=== PATIENT | male | born 1950 | race Caucasian/White ===

== ENCOUNTER 2023-06-02 09:46 | Outpatient (OUT) | payer MEDICARE, OTHER, SELFPAY ==
[2023-06-02 10:09] LABS: Basophils Absolute Auto 0.1 10^3/uL (0.0-0.1); Basophils Percent Auto 1.6 % (0.2-2.0); Eosinophils Absolute Auto 0.2 10^3/uL (0.0-0.7); Eosinophils Percent Auto 3.3 % (0.9-7.0); Hematocrit 39.4 % (42.0-54.0); Immature Granulocytes Abs Auto 0.03 10^3/uL (0.00-0.03); Immature Granulocytes Pct Auto 0.5 % (0.0-0.5); Lymphocytes Absolute Auto 1.7 10^3/uL (1.2-3.8); Lymphocytes Percent Auto 26.7 % (20.5-60.0); Mean Corpuscular Hemoglobin 30.4 pg (25.9-34.0); Mean Corpuscular Volume 92.3 fL (80.0-94.0); Monocytes Absolute Auto 0.6 10^3/uL (0.3-0.8); Monocytes Percent Auto 9.5 % (1.7-12.0); Neutrophils Absolute Auto 3.7 10^3/uL (1.4-6.5); Neutrophils Percent Auto 58.4 % (43.0-75.0); Platelet Count 192 10^3/uL (150-450); Red Blood Count 4.27 10^6/uL (4.70-6.10); Red Cell Distribution Width 13.2 % (11.0-15.0); White Blood Count 6.4 10^3/uL (4.0-11.0)
[2023-06-02 11:06] LABS: Alanine Aminotransferase 64 U/L (16-63); Albumin Globulin Ratio 1.1; Albumin Level 3.8 g/dL (3.4-5.0); Alkaline Phosphatase 64 U/L (46-116); Aspartate Amino Transferase 33 U/L (15-37); BUN Creatinine Ratio 20.9; Bilirubin Total 0.5 mg/dL (0.2-1.0); Calcium 8.8 mg/dL (8.5-10.1); Carbon Dioxide 23.3 mmol/L (21.0-32.0); Chloride 104 mmol/L (98-107); Chol HDL Ratio 3.2; Cholesterol 190 mg/dL (<=200); Estimated GFR (African America >60 (>=60); Estimated GFR (Non-African Ame >60 (>=60); Free T3 2.65 pg/mL (2.18-3.98); Globulin 3.5 g/dL; Glucose 134 mg/dL (74-106); HDL Cholesterol 60 mg/dL (40-60); LDL Cholesterol Calculated 103.6 mg/dL; Potassium 4.3 mmol/L (3.5-5.1); Sodium 140 mmol/L (136-145); Thyroid Stimulating Hormone 3.407 uIU/mL (0.358-3.740); Total Protein 7.3 g/dL (6.4-8.2); Triglycerides 132 mg/dL (<=150); VLDL CHOLESTEROL 26.4 mg/dL
[2023-06-02 11:42] LABS: Prostate Specific Antigen Scrn 0.82 ng/mL (<=4.00)
[2023-06-02 11:43] LABS: Estimated Average Glucose 128 mg/dL; Glycohemoglobin A1C 6.1 % (4.5-6.2)
[2023-06-03 11:09] LABS: Insulin 18.3 uIU/mL (2.6-24.9)
== END 2023-06-02 09:47 | disposition home or self-care (01) ==
PROVIDERS: PCP Family Medicine; Visit Provider Family Medicine
DX: G47.30 Sleep apnea, unspecified (principal); I10 Essential (primary) hypertension; E78.5 Hyperlipidemia, unspecified; R73.09 Other abnormal glucose; Z12.5 Encounter for screening for malignant neoplasm of prostate
CPT/HCPCS: 36415; 80053; 80061; 83036; 83525; 84436; 84443; 84481; 85025; G0103

== ENCOUNTER 2023-12-03 10:01 | Outpatient (OUT) | payer MEDICARE, OTHER, SELFPAY ==
[2023-12-03 10:36] LABS: Basophils Absolute Auto 0.1 10^3/uL (0.0-0.1); Basophils Percent Auto 0.9 % (0.2-2.0); Eosinophils Absolute Auto 0.2 10^3/uL (0.0-0.7); Eosinophils Percent Auto 2.7 % (0.9-7.0); Hematocrit 39.2 % (42.0-54.0); Hemoglobin 13.3 g/dL (14.0-18.0); Immature Granulocytes Abs Auto 0.06 10^3/uL (0.00-0.03); Immature Granulocytes Pct Auto 0.9 % (0.0-0.5); Lymphocytes Absolute Auto 1.4 10^3/uL (1.2-3.8); Lymphocytes Percent Auto 20.6 % (20.5-60.0); Mean Corpuscular HGB Conc 33.9 g/dL (29.9-35.2); Mean Corpuscular Hemoglobin 31.1 pg (25.9-34.0); Mean Corpuscular Volume 91.6 fL (80.0-94.0); Mean Platelet Volume 9.1 fL (9.5-13.5); Monocytes Absolute Auto 0.6 10^3/uL (0.3-0.8); Monocytes Percent Auto 8.1 % (1.7-12.0); Neutrophils Absolute Auto 4.7 10^3/uL (1.4-6.5); Neutrophils Percent Auto 66.8 % (43.0-75.0); Platelet Count 200 10^3/uL (150-450); Red Blood Count 4.28 10^6/uL (4.70-6.10); Red Cell Distribution Width 12.4 % (11.0-15.0)
[2023-12-03 10:59] LABS: Alanine Aminotransferase 52 U/L (16-63); Albumin Globulin Ratio 1.2; Albumin Level 3.7 g/dL (3.4-5.0); Alkaline Phosphatase 55 U/L (46-116); Anion Gap 14.7; Aspartate Amino Transferase 29 U/L (15-37); BUN Creatinine Ratio 19.2; Bilirubin Total 0.4 mg/dL (0.2-1.0); Calcium 8.9 mg/dL (8.5-10.1); Carbon Dioxide 24.6 mmol/L (21.0-32.0); Chloride 102 mmol/L (98-107); Creatine Kinase 153 U/L (39-308); Estimated GFR (African America >60 (>=60 mL/min/1.73m^2); Estimated GFR (Non-African Ame >60 (>=60 mL/min/1.73m^2); Globulin 3.2 g/dL; Glucose 146 mg/dL (74-106); Magnesium 1.7 mg/dL (1.8-2.4); Myoglobin 78 ng/mL (16-96); Potassium 4.3 mmol/L (3.5-5.1); Sodium 137 mmol/L (136-145); Total Protein 6.9 g/dL (6.4-8.2)
[2023-12-04 09:28] LABS: Estimated Average Glucose 123 mg/dL; Glycohemoglobin A1C 5.9 % (4.5-6.2)
== END 2023-12-03 10:02 | disposition home or self-care (01) ==
LOC: LAB 10:04
PROVIDERS: PCP Family Medicine; Visit Provider Family Medicine
DX: R73.09 Other abnormal glucose (principal); I10 Essential (primary) hypertension
CPT/HCPCS: 36415; 80053; 82550; 83036; 83735; 83874; 85025

== ENCOUNTER 2024-01-21 14:20 | Outpatient (OUT) | payer MEDICARE, OTHER, SELFPAY ==
--- NOTE | 2024-01-21 14:21 | VEIN_ITS ---
The [address] [address] Patient Name: MIRZA HILARIO MRN: [id number] date: 1950 Sex: M Assigned Patient Location: Current Patient Location: Accession/Order Number: [id number] Exam Date: 01/21/2024 14:22 Report Date: 01/22/2024 11:20 At the request of: BRIDGER MASTERSON Procedure: VC SEGMENTAL PRESSURES EXAM: VC SEGMENTAL PRESSURES HISTORY: R09.89 COMPARISON: None. TECHNIQUE: Resting ABIs and segmental limb pressures were obtained. FINDINGS: Right resting BETH normal at 1.16. Left resting BETH normal at 1.25. No pressure gradients were noted. VEIN/VC SEGMENTAL PRESSURES IMPRESSION: Normal resting ABIs and segmental pressures. No pressure gradients. Electronically authenticated by: Hugo WILKINSON Date: 01/22/2024 11:20
--- OUTSIDE RECORDS SUMMARY | 2024-01-21 14:37 | XMS_ITS | CCD ---
Author Organization [facility] Care Team Providers Care [employer] Production Technician Name Role Phone Bridger Perez Primary Care Physician Ana PROVIDERBridger Referring Unavailabl e NILLMirza Attending Unavailable NILL, Mirza Rosas Attending Unavailable Pby Bridger CARDENAS Referring Unavailabl e NILL, Mirza Rosas Attending Unavailable NILL ., DR BLUE Admitting Unavailable NILL ., DR BLUE Attending Unavailable HOY ., DR SPARKS Primary Care Unavailable NILL ., DR BLUE Consulting Unavailable NILL ., DR BLUE Admitting Unavailable NILL ., DR BLUE Attending Unavailable HOY ., DR SPARKS Primary Care Unavailable NILL ., DR BLUE Consulting Unavailable KEYONNA CASTILLO Consulting Unavailable ASHLEY CHEUNG Consulting Unavailable HOY ., DR SPARKS Admitting Unavailable HOY ., DR SPARKS Attending Unavailable HOY ., DR SPARKS Primary Care Unavailable ANA ., DR SPARKS Consulting Unavailable MD Bridger Perez Primary [phone] Bridger Perez Primary Care Unavailable Carole Bond Attending Unavailable Carole Bond Admitting Unavailable Unavailable Primary Care Provider UnavailOLGA LIDIA Holliday Attending Unavailable Allergies Allergy Classification Reported Allergen(s) Allergy Type Date of Onset Reaction(s) Facility (1 source) No Known Medication Allergies; Translations: [No Known Medication Allergies] Propensity to adverse reactions (disorder) [facility] Repository Medications Current Medications Medication Drug Class(es) Dates Sig (Normalized) Sig (Original) benazepril hydrochloride 40 mg oral tablet (6 sources) Angiotensin Converting Enzyme Inhibitor Start: 11-08-2023 take 40 mg by mouth once daily Benazepril Active 40 MG PO Daily November 08, 2023 12:00am Start: 02-14-2022 take 1 tablet by faby th once daily benazepril 20 mg Tab 20 mg = 1 tab(s), Oral, Daily, Refills(s) 0 Start Date: 02/14/22 Status: Ordered ezetimibe 10 mg oral tablet (6 sources) Dietary Cholesterol Absorption Inhibitor Start: 02-14-2022 take 10 mg by mouth once daily Ezetimibe Active 10 MG PO Daily November 08, 2023 12:00am ibuprofen 800 mg oral tablet (5 sources) Nonsteroidal Anti-inflammatory Drug Start: 12-03-2022 ibuprofen 800 MG tablet TAKE 1 TABLET BY MOUTH EVERY 6 TO 8 HOURS NEEDED 12/03/2022 Active predniSONE 20 mg oral tablet (1 source) Start: 11-08-2023 take 40 mg by mouth once daily Prednisone Active 40 MG PO Daily 6 November 08, 2023 12:00am simvastatin 20 mg oral tablet (6 sources) HMG-CoA Reductase Inhibitor Start: 11-08-2023 take 20 mg by mouth once daily Simvastatin Active 20 MG PO Daily November 08, 2023 12:00am Start: 02-14-2022 take 1 tablet by faby th once daily at bedtime simvastatin 40 mg Tab 40 mg = 1 tab(s), Oral, Once a day (at bedtime), Refills(s) 0 Start Date: 02/14/22 Status: Ordered tiZANidine 2 mg oral capsule (1 source) Central alpha-2 Adrenergic Agonist Start: 11-08-2023 take 2 mg by mouth once daily at bedtime Tizanidine Active 2 MG PO Daily at bedtime 3 November 08, 2023 12:00am Problems Problem Classification Problem Date Documented Date Episodic/Chronic Diabetes mellitus without complication (1 source) Other abnormal glucose; Translations: [OTHER ABNORMAL GLUCOSE] Onset: 05-24-2022 Episodic Disorders of lipid metabolism (4 sources) Hyperlipidemia; Translations: [Hyperlipidemia, unspecified] Onset: 05-24-2022 02-14-2022 Chronic Essential hypertension (4 sources) Hypertensive disorder; Translations: [Essential (primary) hypertension] Onset: 05-24-2022 02-14-2022 Chronic Nutritional deficiencies (1 source) Vitamin D deficiency, unspecified; Translations: [VITAMIN D DEFICIENCY UNSPECIFIED] Onset: 05-24-2022 Chronic Other and unspecified benign neoplasm (2 sources) History of polyp of colon; Translations: [Personal history of colonic polyps] Onset: 02-26-2022 Episodic Other and unspecified benign neoplasm (1 source) Benign adenomatous neoplasm 02-14-2022 Episodic Other and unspecified benign neoplasm (4 sources) Personal history of colonic polyps; Translations: [PERSONAL HISTORY OF COLONIC POLYPS] Onset: 03-19-2022 Episodic Other and unspecified benign neoplasm (2 sources) Skin lesion; Translations: [Hemangioma of skin and subcutaneous tissue] 12-21-2023 Episodic Other ear and sense organ disorders (1 source) Sensorineural hearing loss 02-14-2022 Chronic Other non-traumatic joint disorders (2 sources) Effusion of right knee joint; Translations: [Effusion, right knee] 11-08-2023 Episodic Other non-traumatic joint disorders (4 sources) Pain in right knee; Translations: [Right knee pain] Onset: 11-08-2023 11-08-2023 Episodic Other non-traumatic joint disorders (1 source) Effusion, right knee; Translations: [Effusion of joint, lower leg] 11-08-2023 Episodic Other nutritional; endocrine; and metabolic disorders (1 source) Body mass index 30+ - obesity 02-26-2022 Chronic Other screening for suspected conditions (not mental disorders or infectious disease) (1 source) Encounter for screening for malignant neoplasm of prostate; Translations: [ENC SCREEN MALIG NEOPLASM PROSTATE] Onset: 05-24-2022 Episodic Other skin disorders (1 source) Mass of left parotid gland 02-14-2022 Episodic Other skin disorders (2 sources) Lentiginosis; Translations: [Other melanin hyperpigmentation] 12-21-2023 Episodic Other skin disorders (2 sources) Seborrheic keratosis; Translations: [Other seborrheic keratosis] 12-21-2023 Episodic Other skin disorders (2 sources) Skin tag; Translations: [Other hypertrophic disorders of the skin] 12-21-2023 Episodic Other upper respiratory disease (1 source) Seasonal allergic rhinitis 02-14-2022 Chronic Residual codes; unclassified (3 sources) Sleep apnea; Translations: [Sleep apnea, unspecified] 02-14-2022 Chronic Residual codes; unclassified (5 sources) Sleep apnea, unspecified; Translations: [SLEEP APNEA UNSPECIFIED] Onset: 03-21-2022 Chronic Residual codes; unclassified (1 source) Family history of malignant neoplasm of digestive organ; Translations: [Family history of malignant neoplasm of digestive organs] Onset: 02-26-2022 Episodic Residual codes; unclassified (1 source) Family history of cancer of colon 02-26-2022 Episodic Residual codes; unclassified (1 source) Family history of malignant neoplasm of digestive organs; Translations: [FAM HX MALIG NEOPLASM DIGESTIV ORGN] Onset: 03-21-2022 Episodic Screening and history of mental health and substance abuse codes (1 source) Personal history of nicotine dependence; Translations: [PERSONAL HISTORY OF NICOTINE DEPEND] Onset: 03-21-2022 Episodic Spondylosis; intervertebral disc disorders; other back problems (3 sources) Low back pain; Translations: [Low back pain] 11-08-2023 Episodic Unclassified (1 source) CONTACT W/AND (SUSP) EXPOS COVID-19; Translations: [CONTACT W/AND (SUSP) EXPOS COVID-19] Onset: 03-21-2022 Results Test Name Value Interpretation Reference Range Facility XR knee RT 4V*on 11-08-2023 XR knee RT 4V* [facility] [place] [address] XRay Report Signed Patient: Mirza Carvalho MR#: [id number] : 1950 Acct:[id number] Age/Sex: 73 / M ADM Date: 11/08/23 Loc: [facility] Room: Type: [facility] Attending Dr: Carole Bond [facility] KAI Copies to: Carole Bond APRN Ordering Provider: Carole Bond APRN Date of Service: 11/08/23 XR/XR knee RT 4V*: LEFT KNEE PAIN XR knee RT 4V* 11/08/2023 10:17 AM SIGNS AND SYMPTOMS: LEFT KNEE PAIN PROTOCOL: Frontal, lateral, and oblique radiographs of the right knee COMPARISON: None FINDINGS: There is mild narrowing of the medial weightbearing joint space with spurring of the medial tibial plateau and medial femoral condyle. There is mild narrowing of the patellofemoral joint space with spurring at the of the patella. There is a small joint effusion. No soft tissue swelling. No fracture. Vascular calcifications are present posteriorly. XR/XR knee RT 4V* IMPRESSION: No acute bony injury. Tricompartmental degenerative changes are noted, greatest medially. There is a small joint effusion. Impression dictated by: Jasper Villalba M.D.11/08/2023 10:28 AM Dictation Location: [place] [address] Transcribed By: JERALD 11/08/23 1028 Dictated By: Jasper Villalba II, MD 11/08/23 1026 Signed By: 11/08/23 1028 Normal [facility] XR lumbar spine min 4V*on XR lumbar spine min 4V* [facility] [place] [address] [place] [address] XRay Report Signed Patient: Mirza Carvalho MR#: [id number] : 1950 Acct:[id number] Age/Sex: 73 / M ADM Date: 11/08/23 Loc: [facility] Room: Type: [facility] Attending Dr: Carole Bond [facility] VP SITE Copies to: Carole Bond APRN Ordering Provider: Carole Bond APRN Date of Service: 11/08/23 XR/XR lumbar spine min 4V*: LOW BACK PAIN XR lumbar spine min 4V* 11/08/2023 10:17 AM SIGNS AND SYMPTOMS: Low back pain radiating to right lower extremity PROTOCOLS: Frontal, lateral, and oblique radiographs of the lumbar spine COMPARISON: None FINDINGS: The alignment, development and bony structures are normal. There is no fracture or destructive lesion. There is moderate to severe disc height loss at L4-5. There is moderate disc height loss at L1-L2, L3-L4, and L5-S1. There is accompanying anterior osteophyte formation. There is facet hypertrophy which is greatest at L4-5. Mild degenerative changes are noted in the sacroiliac joints. Atherosclerotic changes are present in the abdominal aorta. XR/XR lumbar spine min 4V* IMPRESSION: No fracture or subluxation. Degenerative changes are noted, greatest at L4-5 as above. Impression dictated by: Jasper Villalba M.D.11/08/2023 10:26 AM Dictation Location: [facility]07 Transcribed By: PWS 11/08/23 1026 Dictated By: Jasper Villalba II, MD 11/08/23 1023 Signed By: 11/08/23 1026 Normal [facility] INSULINon 05-21-2022 Insulin 13.5 uIU/mL Normal 2.6-24.9 [facility] Comment on above: Performed By: #### I NSULIN #### [facility] [address] [place] [address] Dr. Marleny Cai CBC AUTO DIFFon 05-20-2022 BASO # 0.1 103/ul Normal 0.0-0.1 [facility] Comment on above: Performed By: #### C BC #### [facility] [address] [place] [address] Dr. Marleny Cai Basophils/100 WBC (Bld) 1.3 % Normal 0.2-2.0 [facility] Comment on above: Performed By: #### C BC #### [facility] [address] [place] [address] Dr. Marleny Cai EO # 0.2 103/ul Normal 0.0-0.7 [facility] Comment on above: Performed By: #### C BC #### [facility] [address] [place] [address] Dr. Marleny Cai Eosinophils/100 WBC (Bld) 3.3 % Normal 0.9-7.0 [facility] Comment on above: Performed By: #### C BC #### [facility] [address] [place] [address] Dr. Marleny Cai Erythrocyte distribution width (RBC) [Ratio] 13.1 % Normal 11.0-15.0 [facility] Comment on above: Performed By: #### C BC #### [facility] [address] [place] [address] Dr. Marleny Cai Hematocrit (Bld) [Volume fraction] 39.2 % Critically low 42.0-54.0 [facility] Comment on above: Performed By: #### C BC #### [facility] [address] [place] [address] Dr. Marleny Cai Hemoglobin (Bld) [Mass/Vol] 13.2 g/dL Critically low 14.0-18.0 [facility] Comment on above: Performed By: #### C BC #### [facility] [address] [place] [address] Dr. Marleny Cai IG # 0.10 10e3/ul Critically high 0.00-0.03 [facility] Comment on above: Performed By: #### C BC #### [facility] [address] [place] [address] [address] Marleny Cai IG % 1.6 % Critically high 0.0-0.5 [facility] Comment on above: Performed By: #### C BC #### [facility] [address] [place] [address] Dr. Marleny Cai LYMPH # 1.7 103/ul Normal 1.2-3.8 [facility] Comment on above: Performed By: #### C BC #### [facility] [address] [place] [address] Dr. Marleny Cai Lymphocytes/100 WBC (Bld) 26.6 % Normal 20.5-60.0 [facility] Comment on above: Performed By: #### C BC #### [facility] [address] [place] [address] Dr. Marleny Cai MANUAL DIFF REQ NO Normal [facility] Comment on above: Performed By: #### C BC #### [facility] [address] [place] [address] Dr. Marleny Cai MCH (RBC) [Entitic mass] 30.3 pg Normal 25.9-34.0 [facility] Comment on above: Performed By: #### C BC #### [facility] [address] [place] [address] Dr. Marleny Cai MCHC (RBC) [Mass/Vol] 33.7 g/dL Normal 29.9-35.2 [facility] Comment on above: Performed By: #### C BC #### [facility] [address] [place] [address] Dr. Marleny Cai MCV (RBC) [Entitic vol] 89.9 fL Normal 80.0-94.0 [facility] Comment on above: Performed By: #### C BC #### [facility] [address] [place] [address] Dr. Marleny Cai MONO # 0.6 103/ul Normal 0.3-0.8 [facility] Comment on above: Performed By: #### C BC #### [facility] [address] [place] [address] Dr. Marleny Cai Monocytes/100 WBC (Bld) 10.0 % Normal 1.7-12.0 [facility] Comment on above: Performed By: #### C BC #### [facility] [address] [place] [address] Dr. Marleny Cai NEUT # 3.6 103/ul Normal 1.4-6.5 [facility] Comment on above: Performed By: #### C BC #### [facility] [address] [place] [address] Dr. Marleny Cai Neutrophils/100 WBC (Bld) 57.2 % Normal 43.0-75.0 [facility] Comment on above: Performed By: #### C BC #### [facility] [address] [place] [address] Dr. Marleny Cai Platelet mean volume (Bld) [Entitic vol] 8.8 fL Critically low 9.5-13.5 [facility] Comment on above: Performed By: #### C BC #### [facility] [address] [place] [address] Dr. Marleny Cai PLT 200 103/ul Normal 150-450 [facility] Comment on above: Performed By: #### C BC #### [facility] [address] [place] [address] Dr. Marleny Cai RBC 4.36 106/ul Critically low 4.70-6.10 [facility] Comment on above: Performed By: #### C BC #### [facility] [address] [place] [address] Dr. Marleny Cai WBC 6.3 103/ul Normal 4.0-11.0 [facility] Comment on above: Performed By: #### C BC #### [facility] [address] [address] [address] Marlney Cai FREE THYROXINE INDEX T7on FTI 2.11 Normal 1.30-4.50 [facility] Comment on above: Performed By: #### T 7, TSH, URIC, CMP, LIPID #### [facility] [address] [place] [address] Dr. Marleny Cai T3U 34.0 % Normal 33.0-40.0 [facility] Comment on above: Performed By: #### T 7, TSH, URIC, CMP, LIPID #### [facility] [address] [place] [address] Dr. Marleny Cai T4 [Mass/Vol] 6.20 ug/dL Normal 4.50-12.[address] [facility] Comment on above: Performed By: #### T 7, TSH, URIC, CMP, LIPID #### [facility] [address] [place] [address] Dr. Marleny Cai GLYCOHEMOGLOBIN A1Con 2022 ADA RECOMMENDATION SEE BELOW Normal [facility] Comment on above: Result Comment: ADA RECOMMENDED LIMIT 4.0 - 6.0 ADA THERAPEUTIC TARGET < 7.0 ACTION SUGGESTED > 7.0 Performed By: #### A 1C #### [facility] [address] [place] [address] Dr. Marleny Cai Glucose [Mass/Vol] 123 mg/dL Normal [facility] Comment on above: Performed By: #### A 1C #### [facility] [address] [place] [address] Dr. Marleny Cai HbA1c (Bld) [Mass fraction] 5.9 % Normal 4.5-6.2 [facility] Comment on above: Performed By: #### A 1C #### [facility] [address] [place] [address] Dr. Marleny Cai LIPID PROFILEon 05-20-2022 CHOL-HDL RATIO NORM SEE BELOW Normal [facility] Comment on above: Result Comment: 3.3 - 4.4 LOW RISK 4.4 - 7.1 AVERAGE RISK 7.1 - 11.0 MODERATE RISK >11.0 HIGH RISK Performed By: #### T 7, TSH, URIC, CMP, LIPID #### [facility] [address] [address] [address] Marleny Cai Cholesterol [Mass/Vol] 234 mg/dL Critically high <=200 [facility] Comment on above: Performed By: #### T 7, TSH, URIC, CMP, LIPID #### [facility] [address] [place] [address] [address] Marleny Cai Cholesterol in HDL [Mass/Vol] 54 mg/dL Normal 40-60 [facility] Comment on above: Performed By: #### T 7, TSH, URIC, CMP, LIPID #### [facility] [address] [place] [address] Dr. Marleny Cai Cholesterol in LDL [Mass/Vol] 147.8 mg/dL Normal [facility] Comment on above: Performed By: #### T 7, TSH, URIC, CMP, LIPID #### [facility] [address] [place] [address] Dr. Marleny Cai Cholesterol.total/Cho lesterol in HDL [Mass ratio] 4.3 {ratio} Normal [facility] Comment on above: Performed By: #### T 7, TSH, URIC, CMP, LIPID #### [facility] [address] [place] [address] Dr. Marleny Cai HDL NORMAL > or = 60 mg/dl - LOW CARDIOVASCULAR RISK <40 mg/dl - HIGH CARDIOVASCULAR RISK Normal [facility] Comment on above: Performed By: #### T 7, TSH, URIC, CMP, LIPID #### [facility] [address] [place] [address] Dr. Marleny Cai LDL CALC NORMAL SEE BELOW Normal [facility] Comment on above: Result Comment: <100 mg/dl OPTIMAL 100 - 129 mg/dl NEAR OR ABOVE OPTIMAL 130 - 159 mg/dl BORDERLINE HIGH 160 - 189 mg/dl HIGH >190 mg/dl VERY HIGH Performed By: #### T 7, TSH, URIC, CMP, LIPID #### [facility] [address] [place] [address] Dr. Marleny Cai Triglyceride [Mass/Vol] 161 mg/dL Critically high <=150 [facility] Comment on above: Performed By: #### T 7, TSH, URIC, CMP, LIPID #### [facility] [address] [address] [address] Marleny Cai VLDL CALC 32.2 mg/dL Normal [facility] Comment on above: Performed By: #### T 7, TSH, URIC, CMP, LIPID #### [facility] [address] [address] [address] Marleny Cai PROF 14(COMP METB)on 023 Albumin [Mass/Vol] 4.2 g/dL Normal 3.4-5.0 [facility] Comment on above: Performed By: #### T 7, TSH, URIC, CMP, LIPID #### [facility] [address] [place] [address] Dr. Marleny Cai Albumin/Globulin [Mass ratio] 1.3 {ratio} Normal [facility] Comment on above: Performed By: #### T 7, TSH, URIC, CMP, LIPID #### [facility] [address] [address] [address] Marleny Cai ALP [Catalytic activity/Vol] 54 U/L Normal 46-116 [facility] Comment on above: Performed By: #### T 7, TSH, URIC, CMP, LIPID #### [facility] [address] [place] [address] Dr. Marleny Cai ALT [Catalytic activity/Vol] 50 U/L Normal 16-63 [facility] Comment on above: Performed By: #### T 7, TSH, URIC, CMP, LIPID #### [facility] [address] [address] [address] Marleny Cai Anion gap [Moles/Vol] 13.4 mmol/L Normal [facility] Comment on above: Performed By: #### T 7, TSH, URIC, CMP, LIPID #### [facility] [address] [place] [address] Dr. Marleny Cai AST [Catalytic activity/Vol] 27 U/L Normal 15-37 [facility] Comment on above: Performed By: #### T 7, TSH, URIC, CMP, LIPID #### [facility] [address] [address] [address] Marleny Cai Bilirubin [Mass/Vol] 0.4 mg/dL Normal 0.2-1.0 [facility] Comment on above: Performed By: #### T 7, TSH, URIC, CMP, LIPID #### [facility] [address] [place] [address] Dr. Marleny Cai Calcium [Mass/Vol] 9.5 mg/dL Normal 8.5-10.1 [facility] Comment on above: Performed By: #### T 7, TSH, URIC, CMP, LIPID #### [facility] [address] [place] [address] Dr. Marleny Cai Chloride [Moles/Vol] 105 mmol/L Normal 98-107 [facility] Comment on above: Performed By: #### T 7, TSH, URIC, CMP, LIPID #### [facility] [address] [place] [address] Dr. Marleny Cai CO2 [Moles/Vol] 27.0 mmol/L Normal 21.0-32.0 [facility] Comment on above: Performed By: #### T 7, TSH, URIC, CMP, LIPID #### [facility] [address] [place] [address] Dr. Marleny Cai Creatinine [Mass/Vol] 0.71 mg/dL Normal 0.70-1.30 [facility] Comment on above: Performed By: #### T 7, TSH, URIC, CMP, LIPID #### [facility] [address] [place] [address] Dr. Marleny Cai EGFR-AF BANGLADESHI >60 Normal >=60 [facility] Comment on above: Performed By: #### T 7, TSH, URIC, CMP, LIPID #### [facility] [address] [place] [address] Dr. Marleny Cai EGFR-NON AF BANGLADESHI >60 Normal >=60 [facility] Comment on above: Performed By: #### T 7, TSH, URIC, CMP, LIPID #### [facility] [address] [place] [address] Dr. Marleny Cai Globulin (S) [Mass/Vol] 3.2 g/dL Normal [facility] Comment on above: Performed By: #### T 7, TSH, URIC, CMP, LIPID #### [facility] [address] [place] [address] Dr. Marleny Cai Glucose [Mass/Vol] 122 mg/dL Critically high 74-106 [facility] Comment on above: Performed By: #### T 7, TSH, URIC, CMP, LIPID #### [facility] [address] [place] [address] Dr. Marleny Cai Potassium [Moles/Vol] 4.4 mmol/L Normal 3.5-5.1 [facility] Comment on above: Performed By: #### T 7, TSH, URIC, CMP, LIPID #### [facility] [address] [place] [address] Dr. Marleny Cai Protein [Mass/Vol] 7.4 g/dL Normal 6.4-8.2 [facility] Comment on above: Performed By: #### T 7, TSH, URIC, CMP, LIPID #### [facility] [address] [place] [address] Dr. Marleny Cai Sodium [Moles/Vol] 141 mmol/L Normal 136-145 [facility] Comment on above: Performed By: #### T 7, TSH, URIC, CMP, LIPID #### [facility] [address] [place] [address] Dr. Marleny Cai Urea nitrogen [Mass/Vol] 19.0 mg/dL Critically high 7.0-18.0 [facility] Comment on above: Performed By: #### T 7, TSH, URIC, CMP, LIPID #### [facility] [address] [place] [address] Dr. Marleny Cai Urea nitrogen/Creatinine [Mass ratio] 26.8 mg/mg Normal [facility] Comment on above: Performed By: #### T 7, TSH, URIC, CMP, LIPID #### [facility] [address] [place] [address] Dr. Marleny Cai TSHon 05-20-2022 TSH 2.373 uIU/mL Normal 0.358-3.740 [facility] Comment on above: Performed By: #### T 7, TSH, URIC, CMP, LIPID #### [facility] [address] [place] [address] Dr. Marleny Cai URIC ACID SERUMon 05-20-2022 Urate [Mass/Vol] 6.8 mg/dL Normal 3.5-7.2 [facility] Comment on above: Performed By: #### T 7, TSH, URIC, CMP, LIPID #### [facility] [address] [id number] Marleny Cai VITAMIN D 25 OHon 05-20-2022 VIT D 25-OH 36.1 ng/mL Normal [facility] Comment on above: Performed By: #### A 1C #### [facility] [address] [place] [address] Dr. Marleny Cai VIT D RANGES SEE BELOW Normal [facility] Comment on above: Result Comment: <20 ng/mL Vit D deficient 20 - <30 ng/mL Vit D insufficient 30 - 100 ng/mL Vit D sufficient >100 ng/mL Potential Toxicity Performed By: #### A 1C #### [facility] [address] [address] [address] Marleny Cai Outside Colonoscopyon 2022 Outside Colonoscopy [id number] #1.00CD:127 Normal [facility] Reminderson 03-20-2022 Reminders - From: Mariela Tracy LPN To: N - Clinical; Sent: 03/20/2022 09:58:13 EST Show up: 02/16/2027 07:00:00 EST Subject: colonoscopy recall Due Date/Time: 03/19/2027 07:00:00 EST Reminder/Recall Patient is due for colonoscopy 03/19/2027 due to history of colonic polyps. Normal [facility] Lab Reportson 03-17-2022 Lab Reports [id number] #1.00CD:127 Normal [facility] Covid-19 PCR (CVDTB)on 03-02 SARS-CoV-2 (COVID-19) RNA VITA+probe Ql (Unsp spec) Not detected Normal NOT DETECTED [facility] Comment on above: Result Comment: This test is not yet approved or cleared by the [place] FDA. When there are no FDA-approved or cleared tests available, and other criteria are met, FDA can make tests available under an emergency access mechanism called an Emergency Use Authorization (EUA). The EUA for this test is supported by the [place] of Health and Human Service's (HHS's) declaration that circumstances exist to justify the emergency use of in vitro diagnostics for the detection and/or diagnosis of the virus that causes COVID-19. This EUA will remain in effect (meaning this test can be used) for the duration of the COVID-19 declaration justifying emergency of IVDs, unless it is terminated or revoked by FDA (after which the test may no longer be used). When diagnostic testing is negative, the possibility of a false negative should be considered in the context of a patient's recent exposures and the presence of clinical signs and symptoms consistent with SARS-CoV-2. Performed By: #### [facility] #### [facility] [address] [place] [address] Dr. Marleny Cai Consent for Procedure/Surger yon 02-28-2022 Consent for Procedure/Surgery [id number] #1.00CD:127 Normal [facility] Formson 02-27-2022 Forms [id number] #1.00CD:127 Normal [facility] Physician Referralon 022 Physician Referral [id number] #1.00CD:127 Normal [facility] Vital Signs Date Time Vital Sign Value Performing Clinician Deana dyer 11-08-2023 09:25-0400 Diastolic blood pressure 85 mm[Hg] MD Bridger Perez Work Phone: [facility] 11-08-2023 09:25-0400 Systolic blood pressure 178 mm[Hg] MD Bridger Perez Work Phone: [facility] 11-08-2023 09:10-0400 Body height 177.8 cm MD Bridger Perez Work Phone: [facility] 11-08-2023 09:10-0400 Body mass index (BMI) [Ratio] 33.9 kg/m2 MD Bridger Perez Work Phone: [facility] 11-08-2023 09:10-0400 Body temperature 99.3 [degF] MD Bridger Perez Work Phone: [facility] 11-08-2023 09:10-0400 Body weight 107.16 kg MD Bridger Perez Work Phone: [facility] 11-08-2023 09:10-0400 Heart rate 81 /min MD Bridger Perez Work Phone: [facility] 11-08-2023 09:10-0400 SaO2% (BldA) [Mass fraction] 98 % MD Bridger Perez Work Phone: [facility] 02-26-2022 13:52-0500 Blood Pressure Location [facility] [place] 02-26-2022 13:52-0500 Diastolic blood pressure 80 mm[Hg] [facility] [place] 02-26-2022 13:52-0500 Heart rate 72 /min [facility] [place] 02-26-2022 13:52-0500 Respiratory rate 16 /min [facility] [place] 02-26-2022 13:52-0500 Systolic blood pressure 164 mm[Hg] [facility] [place] Encounters Encounter Date Encounter Type Care Provider Facility Start: 12-21-2023 End: 12-21-2023 Bamboo flowsheet Olga Lidia Luna MD Work Phone: [facility] Start: 12-21-2023 End: 12-21-2023 Bamboo flowsheet Olga Lidia Luna MD Work Phone: [facility] Start: 12-21-2023 End: 12-21-2023 Office outpatient visit 15 minutes Olga Lidia Luna MD Work Phone: [facility] Comment on above: Seborrheic keratosis (Primary Dx); Lentigines; Angioma of skin; Skin tag Start: 12-21-2023 End: 12-21-2023 ambulatory OLGA LIDIA LUNA Not Available Start: 11-08-2023 End: 11-08-2023 ambulatory MD Bridger Perez Work Phone: [facility] Work Phone: Start: 11-08-2023 End: 11-08-2023 Patient encounter procedure MD Bridger Perez Work Phone: [facility] Work Phone: Start: 05-20-2022 End: 05-21-[address] BRIDGER PEREZ . Facility:[facility] Start: 03-21-2022 Encounter for preprocedural laboratory examination DR MIRZA REED . [facility] Start: 03-19-2022 End: 03-20-2022 ambulatory [facility] Facility:CD:[id number] Start: 03-15-2022 End: 03-16-[address] MIRZA REED . Facility:[facility] Start: 03-15-2022 End: 03-16-2022 Encounter for preprocedural laboratory examination DR MIRZA REED . Facility: Start: 02-26-2022 End: 02-27-2022 ambulatory Mirza REED Facility:[facility] Start: 02-26-2022 End: 02-26-2022 Patient encounter procedure [facility] Start: 02-03-2022 ambulatory Bridger Perez PROVIDER Fa cility:[facility] [place] Procedures Date Procedure Procedure Detail Performing Clinician Start: 11-08-2023 X-ray of lumbar spin e, four or more views MD Bridger Perez Work Phone: Start: 11-08-2023 X-ray of right knee MD Bridger Perez Work Phone: Start: 05-20-[address] FRANNIE REED . Comment on above: Performed By: #### A 1C #### [facility] [address] [place] [address] Dr. Marleny Cai Start: 02-11-2017 Colonoscopy Olga Lidia cao MD Work Phone: Start: 02-11-2017 Colonoscopy [facility] Start: 02-08-2014 Colonoscopy [facility] Start: 10-20-2012 Colonoscopy [facility] Start: 06-07-2012 Colonoscopy [facility] Start: 03-07-2011 Colonoscopy [facility] Start: 07-22-2010 Colonoscopy [facility] Start: 01-05-2008 Colonoscopy [facility] Start: 12-23-2006 Colonoscopy [facility] Fine needle aspirati on biopsy of parotid gland [facility] H/O: surgery H/O parotidectomy MD Bridger Perez Work Phone: Plan of Treatment Date Care Activity Detail Author Start: 02-11-2027 Screening for malign ant neoplasm of colon [facility] Start: 01-04-2025 End: 01-04-2025 Patient encounter procedure 01/04/2025 10:50 AM EST Office Visit [facility] [address] [place] [id number] Olga Lidia Luna MD [address] [place] [address] [facility] Start: 12-21-2023 End: 12-21-2023 Patient encounter procedure 12/21/2023 11:20 AM EDT Office Visit [facility] [address] [place] [id number] Olga Lidia Luna MD [address] [place] [address] [facility] Comment on above: Arrived Start: 11-01-2023 Influenza vaccination Influenz a Vaccine (#1) [facility] Start: 1950 Screening for malign ant neoplasm of colon [facility] Patient Education Low back pain in adults [facility] Work Phone: XR Knee - right 4 Views [facility] XR Lumbar spine GE 4 Views [facility] Immunizations Immunization Date Immunization Notes Care Provider Fa [facility] 01-21-2023 influenza virus vaccine, unspecified formulation lOga Lidia Luna MD Work Phone: [facility] 01-21-2022 SARS-CoV-2 (COVID-19 ) [id number] [facility] [place] 01-14-2022 influenza virus vaccine, unspecified formulation [facility] [place] 12-18-2020 SARS-CoV-2 (COVID-19 ) mRNA BNT-162b2 vax [facility] [place] 04-11-2020 SARS-CoV-2 (COVID-19 ) mRNA BNT-162b2 vax [facility] [place] Comment on above: Result Comment: 2021: [id number] Payers Date Payer Category Payer Self-pay 2021 Private Health Insurance [employer] [id number] 2016 Medicare MEDICARE [id number] 1959 Medicare [id number] 1959 Unknown [id number] 1950 Unknown [id number] 1950 Unknown [id number] 1950 Unknown [id number] 1950 Unknown [id number] 1950 Unknown [id number] 1950 Unknown [id number] 1950 Unknown [id number] Unknown [id number] Social History Date Type Detail Facility Start: 02-26-2022 End: 11-08-2023 Tobacco smoking status Ex-smoker (finding) [facility] Tobacco smoking status Never [facility] [place] Start: 12-18-2022 End: 12-21-2023 Sex Assigned At Male [facility] Start: 1950 Sex Assigned At Male [facility] Start: 12-18-2022 [facility] Start: 12-18-2022 Tobacco use and exposure Smokeless tobacco non-user [facility] Start: 12-18-2022 End: 12-21-2023 History of [address] [facility] Start: 1950 Sex assigned at Not on file [facility] Functional Status Date Assessment Result Facility 02-26-2022 Functional Status N/A [facility] [place] History of Present illness Narrative 12-21-2023 Olga Lidia Luna MD - 12/21/2023 11:20 AM EDT Note Date & Type Note Facility 12-21-2023 History of Presen t illness Narrative Skin Check Location: Patient requests a full body skin examination Dermatologic history: history of Actinic Keratosis Last visit: 1 year ago established patient All pertinent medical history, medications, and allergies were reviewed. General Exam: alert , oriented to person, place, and time , normal affect, well appearing Unaccompanied Areas not examined despite medical recommendation: Scalp, Examined Right leg Examined Head, Face Examined Left leg Examined Neck Examined Right foot not Examined Chest Examined Left foot not Examined Back Examined Buttocks Examined Abdomen Examined Digits,nails: Examined Right arm Examined Left arm Examined Lymphatics: Not examined Hands Examined 1. Lentigines Scattered christianson macules in sun-exposed areas. The patient was informed that lentigines are benign pigmented lesions that occur on sun-exposed and sun-damaged skin. No treatment is necessary. Recommended regular use of broad spectrum sunscreen SPF 30 or higher 2. Seborrheic keratosis Stuck on verrucous, christianson-brown papules and plaques. Patient was counseled regarding these benign growths. Removal is normally not necessary, but they may be removed if they are symptomatic or for cosmetic reasons. 3. Angioma of skin Trunk Scattered weller-red papule(s). The patient was informed that angiomas are benign growths on the the skin. No treatment is necessary. 4. Skin tag (2) Left Axilla, Right Upper Arm - Anterior Fleshy, skin-colored sessile and pedunculated papules. The patient was informed that skin tags are benign growths usually found around the neck or in the axillae. No treatment is necessary, but at times they can get caught on jewelry or clothing or become inflamed. Skin tags can be removed with scissors or liquid nitrogen. Next Visit: 1 year (skin check) documented in this encounter [facility] Clinical Note 03-19-2022 Note Date & Type Note Facility 03-19-2022 Note OPERATIVE NOTE OPERATION DATE: 03/19/2022 PREOPERATIVE DIAGNOSIS: Personal history of colon polyps. POSTOPERATIVE DIAGNOSIS: Normal colonoscopy to cecum. PROCEDURE: Colonoscopy to cecum. SURGEON: Mirza Reed M.D. ANESTHESIA: Monitored anesthesia care. ESTIMATED BLOOD LOSS: Zero. INDICATIONS AND CONSENT: Patient is a 71-year-old male with personal history of colon polyps. Indications, risks, benefits, alternatives of proceeding with colonoscopy were explained extensively to the patient, including the risks of bleeding, colon perforation or anesthetic complications. All of his questions were answered. Informed consent was obtained. PROCEDURE: Patient brought to the operating room, placed in the left lateral decubitus position. Monitored anesthesia care was provided. Rectal exam was performed which showed no masses or blood. The scope was inserted into the anal canal. Under direct visualization was advanced. It was advanced to the cecum where cecal markings were clearly identified. Upon withdrawal of the scope, mucosal surfaces were carefully examined. There were no mass lesions or polyps. No inflammatory changes or ulcerations. No significant diverticulosis. The scope was retroflexed in the anal canal. There was no significant hemorrhoidal disease. Scope was then withdrawn. Patient tolerated procedure well, was sent to recovery room in good condition. Follow up colonoscopy should be in five years due to personal history of colon polyps. CC: Bridger Perez M.D. [facility] Clinical Note 02-26-2022 Note Date & Type Note Facility 02-26-2022 Note Chief Complaint consultation for colonoscopy recall [facility] Staff 71 year old male presents on consultation from Dr. Perez for colon recall. Last colonoscopy completed 01/2017 with hyperplastic polyp. Patient with history of multiple tubulovillous adenomas. Denies abdominal or rectal pain. No rectal bleeding or change in bowel habits. Denies nausea or vomiting. No unexplained weight loss. Father with history of colon cancer, diagnosed age 48. History of Present Illness 71 yo male with h/o htn, hyperlipidemia, referred for surveillance colonoscopy; patient has a h/o tubulovillous adenomas in desc colon; also fmhx of colon cancer in patient's father, who of the disease at age 48; last colonoscopy 2016 with hyperplastic polyp; patient denies change in bms or blood in stools, no abd complaints; no previous abdominal operations; no asa or NSAID use, no SBE prophylaxis; no fmhx of IBD; no tobacco use. Review of Systems PHQ Score Initial Depression Screen Score: 0 ROS - Provider Constitutional: no fever, no sweats, no weight loss. Eyes: no glasses, no blurred vision, no visual loss. ENMT: no dentures, no hoarseness, no swallowing difficulties, no hearing loss, no ear infection(s), no nose bleeds. Cardiovascular: normal blood pressure, no chest pain, regular heartbeat, no heart murmur. Respiratory: no shortness of breath, no cough, no asthma, no wheezing. Gastrointestinal: no nausea, no vomiting, no diarrhea, no constipation, no blood in stool, no change in bowel habits, no abdominal pain, no hepatitis. Genitourinary: no kidney stones, no urine infection, no dysuria. Musculoskeletal: no pain, no weakness. Skin: no changing moles, no rash, no skin lumps. Neurologic: no seizures, no epilepsy, no headache. Psychiatric: no emotional or psychiatric problem. Heme/Lymph: no bleeding problems, no anemia, no blood clots, no transfusions. Allergy/Immunologic: no swollen lymph nodes/glands, no IV drug abuse. Other: Additional ROS info: Except as noted in the above Review of Systems and in the History of Present Illness, all other systems have been reviewed and are negative or noncontributory. Physical Exam Vitals & Measurements HR: 72(Peripheral) RR: 16 BP: 164/80 HT: 70 in HT: 177.8 cm WT: 110.2 kg WT: 242.44 lb BMI: 34.86 HEENT: normal conjunctiva, sclera clear, no scleral icterus, EOM intact, PERRLA, oral mucosa moist without lesions. Neck: trachea midline, no mass, symmetric, no thyromegaly or nodules, no adenopathy Respiratory: lungs CTA, respirations non labored. Cardiovascular: regular rate and rhythm, no murmur, no pedal edema or varicosities. Gastrointestinal: obese, soft, non distended, no tenderness, no masses, no palpable hernias, diastasis recti no, no hepatosplenomegaly; normal bs Lymphatic: no cervical adenopathy, Musculoskeletal: normal gait, digits and nails without infection, nodes, cyanosis, clubbing. Skin: no rashes, no lesions, no ulcers, no subcutaneous nodules, induration. Psychiatric/Neuro: oriented to time, place, person, judgement normal, affect appropriate for age, insight intact, no focal deficits. Tests: review of old records completed, Discussed surgical options, risks, and possible complications with patient. Assessment/Plan 1. Personal history of colonic polyps (Z86.010: Personal history of colonic polyps) plan surveillance colonoscopy under anesthesia, informed consent obtained. 2. Family history of colon cancer in father (Z80.0: Family history of malignant neoplasm of digestive organs) see # 1 Follow-up No qualifying data available Problem List/Past Medical History Ongoing BMI 34.0-34.9,adult Family history of colon cancer in father Hearing loss, sensorineural HTN (hypertension) Hyperlipidemia Mass of left parotid gland Personal history of colonic polyps Seasonal allergic rhinitis Sleep apnea Tubulovillous adenoma Historical No qualifying data Procedure/Surgical History Colonoscopy (02/11/2017), Colonoscopy (02/08/2014), Colonoscopy (10/20/2012), Colonoscopy (06/07/2012), Colonoscopy (03/07/2011), Colonoscopy (07/22/2010), Colonoscopy (01/05/2008), Colonoscopy (12/23/2006), Fine needle aspiration biopsy of parotid gland. Medications benazepril 20 mg Tab, 20 mg= 1 tab(s), Oral, Daily simvastatin 40 mg Tab, 40 mg= 1 tab(s), Oral, Once a day (at bedtime) Zetia 10 mg Tab, 10 mg= 1 tab(s), Oral, Daily Allergies No Known Allergies No Known Medication Allergies Social History Alcohol Current, Beer, 1-2 times per week, 02/26/2022 Substance Abuse - Denies Substance Abuse, 02/26/2022 Tobacco Former smoker, quit more than 30 days ago Tobacco Use:. Never Smokeless Tobacco Use:. Cigarettes, Started age 17.0 Years. Stopped age 34 Years., 02/26/2022 Family History Heart disease: Mother. Primary malignant neoplasm of colon: Father. Immunizations Vaccine Date Status Comments SARS-CoV-2 (COVID-19) [id number] 01/21/2022 Recorded influenza vi (more content not included)... [facility] Comment on above: Result Comment: Elec tronically Signed By: TED MORALES, Mirza Rosas\.john\Date and Time Signed: 02/26/22 14:24 EST Evaluation + Plan note Note Date & Type Note Facility Evaluation + Plan note No data available for this section [facility] [place] Evaluation note Note Date & Type Note Facility Evaluation note No assessment information availa [facility] Work Phone: Evaluation note Note Date & Type Note Facility Evaluation note Diagnosis Onset Date Effusion, right knee acute Low back pain acute Right knee pain [place] Work Phone: Evaluation note Note Date & Type Note Facility Evaluation note Diagnosis Seborrheic keratosis- Primary Lentigines Angioma of skin Skin tag Unspecified hypertrophic and atrophic condition of skin documented in this encounter [facility] Hospital Discharge instructions Note Date & Type Note Facility Hospital Discharge instructions No data available for this section [facility] [place] Progress note Note Date & Type Note Facility Progress note No data available for this section [facility] [place] Summary Purpose Family History No Family History Records Found Relationship Condition Age at Onset Recorded Date/T leigh ann father Malignant neoplasm Unknown mother Heart disease Unknown Advance Directives No Advanced Directives Records Found Advance Directive Response Recorded Date/ Time Advance Directives No October 9:05am Chief Complaint and Reason for Visit Chief Complaint Right knee pain Chief Complaint Right knee pain Reason for Visit Effusion, right knee Low back pain Right knee pain Additional Source Comments Patient Care team informatio n (unrecognized section and content) Team Status: Active Member Role Status Dates Bridger Perez MD Primary Care Provider Active Team Status: Inactive Member Role Status Dates Bridger Perez MD Primary Care Provider Active Start: November 08, 2023 End: November 08, 2023 Carole LUGO APRN Attending Provider Active Start: November 08, 2023 End: November 08, 2023 Team Status: Active Member Role Status Dates Bridger Perez MD Primary Care Provider Active Start: November 08, 2023 Carole LUGO APRN Attending Provider Active Start: November 08, 2023 (unrecognized sect ion and content) No Status Records FoundNo Status Records FoundNo Status Records FoundNo Status Records Found INFORMATION SOURCE (unrecogn ized section and content) DATE CREATED AUTHOR 03/26/2022 [facility] DATE CREATED AUTHOR AUTHOR'S ORGANIZ ATION 05/25/2022 [facility]ital DATE CREATED AUTHOR AUTHOR'S ORGANIZ ATION 11/16/2023 [facility] DATE CREATED AUTHOR AUTHOR'S ORGANIZ ATION 12/22/2023 [facility] EPIC Goals (unrecognized section and content) Goals may be documented in a n alternate section Reason for Visit (unrecogniz ed section and content) Reason Comments Skin Check FOR RECORDS PERTAINING TO PATIENTS WHO ARE OR HAVE BEEN ENROLLED IN A CHEMICAL DEPENDENCY/SUBSTANCEABUSE PROGRAM, SOME INFORMATION MAY BE OMITTED. This clinical summary was aggregated from multiple sources. Caution should be exercised in using it in the provision of clinical care. This summary normalizes information from multiple sources, and as a consequence, information in this document may materially change the coding, format and clinical context of patient data. In addition, data may be omitted in some cases. CLINICAL DECISIONS SHOULD BE BASED ON THE PRIMARY CLINICAL RECORDS. [employer] provides no warranty or guarantee of the accuracy or completeness of information in this document.
== END 2024-01-21 14:21 | disposition home or self-care (01) ==
LOC: VC 14:20
PROVIDERS: PCP Family Medicine; Visit Provider Family Medicine
DX: R09.89 Other specified symptoms and signs involving the circulatory and respiratory systems (principal)
CPT/HCPCS: 93923

== ENCOUNTER 2024-05-26 10:40 | Outpatient (OUT) | payer MEDICARE, OTHER, SELFPAY ==
--- OUTSIDE RECORDS SUMMARY | 2024-05-26 10:48 | XMS_ITS | CCD ---
Author Organization 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 Name Role Phone Bridger Perez Primary Care [...] Unavailable MD Bridger Perez Primary [phone] [facility] Bridger Perez Primary Care Unavailable Carole Bond Attending Unavailable Carole Bond Admitting Unavailable Unavailable Primary Care Provider UnavailOLGA LIDIA Holliday Attending Unavailable Allergies Allergy Classification Reported Allergen(s) Allergy Type Date of Onset Reaction(s) Facility (1 source) No Known Medication Allergies; Translations: [No Known Medication Allergies] Propensity to adverse reactions (disorder) [facility] Repository Medications Current Medications Medication Drug Class(es) [...] RT 4V*on 11-08-2023 XR knee RT 4V* [facility] [place] [address] XRay Report Signed Patient: Mirza Carvalho MR#: [id number] : 1950 Acct:[id number] Age/Sex: 73 / M ADM Date: 11/08/23 Loc: [facility] Room: Type: [facility] Attending Dr: Carole Bond [facility] KAI Copies to: Carole Bond APRN Ordering [...] Jasper Villalba M.D.11/08/2023 10:28 AM Dictation Location: [place] [address] Transcribed By: JERALD 11/08/23 1028 Dictated By: Jasper Vlilalba II, MD 11/08/23 1026 Signed By: 11/08/23 1028 Normal [facility] XR lumbar spine min 4V*on XR lumbar spine min 4V* [facility] [place] [address] [place] [address] XRay Report Signed Patient: Mirza Carvalho MR#: [id number] : 1950 Acct:[id number] Age/Sex: 73 / M ADM Date: 11/08/23 Loc: [facility] Room: Type: [facility] Attending Dr: Carole Bond [facility] VALIDATION MANAGER Copies to: Carole Bond APRN Ordering Provider: [...] Jasper Villalba M.D.11/08/2023 10:26 AM Dictation Location: [facility]07 Transcribed By: PWS 11/08/23 1026 Dictated By: Jasper Villalba II, MD 11/08/23 1023 Signed By: 11/08/23 1026 Normal [facility] INSULINon 05-21-2022 Insulin 13.5 uIU/mL Normal 2.6-24.9 [facility] Comment on above: Performed By: #### I NSULIN #### [facility] [address] [place] [address] Dr. Marleny Cai CBC AUTO DIFFon 05-20-2022 BASO # 0.1 103/ul Normal 0.0-0.1 [facility] Comment on above: Performed By: #### C BC #### [facility] [address] [place] [address] Dr. Marleny Cai Basophils/100 WBC (Bld) 1.3 % Normal 0.2-2.0 [facility] Comment on above: Performed By: #### C BC #### [facility] [address] [place] [address] Dr. Marleny Cai EO # 0.2 103/ul Normal 0.0-0.7 [facility] Comment on above: Performed By: #### C BC #### [facility] [address] [place] [address] Dr. Marleny Cai Eosinophils/100 WBC (Bld) 3.3 % Normal 0.9-7.0 [facility] Comment on above: Performed By: #### C BC #### [facility] [address] [place] [address] Dr. Marleny Cai Erythrocyte distribution width (RBC) [Ratio] 13.1 % Normal 11.0-15.0 [facility] Comment on above: Performed By: #### C BC #### [facility] [address] [place] [address] Dr. Marleny Cai Hematocrit (Bld) [Volume fraction] 39.2 % Critically low 42.0-54.0 [facility] Comment on above: Performed By: #### C BC #### [facility] [address] [place] [address] Dr. Marleny Cai Hemoglobin (Bld) [Mass/Vol] 13.2 g/dL Critically low 14.0-18.0 [facility] Comment on above: Performed By: #### C BC #### [facility] [address] [place] [address] Dr. Marleny Cai IG # 0.10 10e3/ul Critically high 0.00-0.03 [facility] Comment on above: Performed By: #### C BC #### [facility] [address] [place] [address] [address] Marleny Cai IG % 1.6 % Critically high 0.0-0.5 [facility] Comment on above: Performed By: #### C BC #### [facility] [address] [place] [address] Dr. Marleny Cai LYMPH # 1.7 103/ul Normal 1.2-3.8 [facility] Comment on above: Performed By: #### C BC #### [facility] [address] [place] [address] Dr. Marleny Cai Lymphocytes/100 WBC (Bld) 26.6 % Normal 20.5-60.0 [facility] Comment on above: Performed By: #### C BC #### [facility] [address] [place] [address] Dr. Marleny Cai MANUAL DIFF REQ NO Normal [facility] Comment on above: Performed By: #### C BC #### [facility] [address] [place] [address] Dr. Mraleny Cai MCH (RBC) [Entitic mass] 30.3 pg Normal 25.9-34.0 [facility] Comment on above: Performed By: #### C BC #### [facility] [address] [place] [address] Dr. Marleny Cai MCHC (RBC) [Mass/Vol] 33.7 g/dL Normal 29.9-35.2 [facility] Comment on above: Performed By: #### C BC #### [facility] [address] [place] [address] Dr. Marleny Cai MCV (RBC) [Entitic vol] 89.9 fL Normal 80.0-94.0 [facility] Comment on above: Performed By: #### C BC #### [facility] [address] [place] [address] Dr. Marleny Cai MONO # 0.6 103/ul Normal 0.3-0.8 [facility] Comment on above: Performed By: #### C BC #### [facility] [address] [place] [address] Dr. Marleny Cai Monocytes/100 WBC (Bld) 10.0 % Normal 1.7-12.0 [facility] Comment on above: Performed By: #### C BC #### [facility] [address] [place] [address] Dr. Marleny Cai NEUT # 3.6 103/ul Normal 1.4-6.5 [facility] Comment on above: Performed By: #### C BC #### [facility] [address] [place] [address] Dr. Marleny Cai Neutrophils/100 WBC (Bld) 57.2 % Normal 43.0-75.0 [facility] Comment on above: Performed By: #### C BC #### [facility] [address] [place] [address] Dr. Marleny Cai Platelet mean volume (Bld) [Entitic vol] 8.8 fL Critically low 9.5-13.5 [facility] Comment on above: Performed By: #### C BC #### [facility] [address] [place] [address] Dr. Marleny Cai PLT 200 103/ul Normal 150-450 [facility] Comment on above: Performed By: #### C BC #### [facility] [address] [place] [address] Dr. Marleny Cai RBC 4.36 106/ul Critically low 4.70-6.10 [facility] Comment on above: Performed By: #### C BC #### [facility] [address] [place] [address] Dr. Marleny Cai WBC 6.3 103/ul Normal 4.0-11.0 [facility] Comment on above: Performed By: #### C BC #### [facility] [address] [address] [address] Marleny Cai FREE THYROXINE INDEX T7on FTI 2.11 Normal 1.30-4.50 [facility] Comment on above: Performed By: #### T 7, TSH, URIC, CMP, LIPID #### [facility] [address] [place] [address] Dr. Marleny Cai T3U 34.0 % Normal 33.0-40.0 [facility] Comment on above: Performed By: #### T 7, TSH, URIC, CMP, LIPID #### [facility] [address] [place] [address] Dr. Marleny Cai T4 [Mass/Vol] 6.20 ug/dL Normal 4.50-12.10 [facility] Comment on above: Performed By: #### T 7, TSH, URIC, CMP, LIPID #### [facility] [address] [place] [address] Dr. Marleny Cai GLYCOHEMOGLOBIN A1Con 2022 ADA RECOMMENDATION SEE BELOW Normal [facility] Comment on above: Result Comment: ADA RECOMMENDED LIMIT 4.0 - 6.0 ADA THERAPEUTIC TARGET < 7.0 ACTION SUGGESTED > 7.0 Performed By: #### A 1C #### [facility] [address] [place] [address] Dr. Marleny Cai Glucose [Mass/Vol] 123 mg/dL Normal [facility] Comment on above: Performed By: #### A 1C #### [facility] [address] [place] [address] Dr. Marleny Cai HbA1c (Bld) [Mass fraction] 5.9 % Normal 4.5-6.2 [facility] Comment on above: Performed By: #### A 1C #### [facility] [address] [place] [address] Dr. Marleny Cai LIPID PROFILEon 05-20-2022 CHOL-HDL RATIO NORM SEE BELOW Normal [facility] Comment on above: Result Comment: 3.3 - 4.4 LOW RISK 4.4 - 7.1 AVERAGE RISK 7.1 - 11.0 MODERATE RISK >11.0 HIGH RISK Performed By: #### T 7, TSH, URIC, CMP, LIPID #### [facility] [address] [address] [address] Marleny Cai Cholesterol [Mass/Vol] 234 mg/dL Critically high <=200 [facility] Comment on above: Performed By: #### T 7, TSH, URIC, CMP, LIPID #### [facility] [address] [address] [address] Marleny Cai Cholesterol in HDL [Mass/Vol] 54 mg/dL Normal 40-60 [facility] Comment on above: Performed By: #### T 7, TSH, URIC, CMP, LIPID #### [facility] [address] [place] [address] Dr. Marleny Cai Cholesterol in LDL [Mass/Vol] 147.8 mg/dL Normal [facility] Comment on above: Performed By: #### T 7, TSH, URIC, CMP, LIPID #### [facility] [address] [place] [address] Dr. Marleny Cai Cholesterol.total/Cho lesterol in HDL [Mass ratio] 4.3 {ratio} Normal [facility] Comment on above: Performed By: #### T 7, TSH, URIC, CMP, LIPID #### [facility] [address] [place] [address] Dr. Marleny Cai HDL NORMAL > or = 60 mg/dl - LOW CARDIOVASCULAR RISK <40 mg/dl - HIGH CARDIOVASCULAR RISK Normal [facility] Comment on above: Performed By: #### T 7, TSH, URIC, CMP, LIPID #### [facility] [address] [place] [address] Dr. Marleny Cai LDL CALC NORMAL SEE BELOW Normal [facility] Comment on above: Result Comment: <100 mg/dl OPTIMAL 100 - 129 mg/dl NEAR OR ABOVE OPTIMAL 130 - 159 mg/dl BORDERLINE HIGH 160 - 189 mg/dl HIGH >190 mg/dl VERY HIGH Performed By: #### T 7, TSH, URIC, CMP, LIPID #### [facility] [address] [place] [address] Dr. Marleny Cai Triglyceride [Mass/Vol] 161 mg/dL Critically high <=150 [facility] Comment on above: Performed By: #### T 7, TSH, URIC, CMP, LIPID #### [facility] [address] [address] [address] Marleny Cai VLDL CALC 32.2 mg/dL Normal [facility] Comment on above: Performed By: #### T 7, TSH, URIC, CMP, LIPID #### [facility] [address] [address] [address] Marleny Cai PROF 14(COMP METB)on 023 Albumin [Mass/Vol] 4.2 g/dL Normal 3.4-5.0 [facility] Comment on above: Performed By: #### T 7, TSH, URIC, CMP, LIPID #### [facility] [address] [place] [address] Dr. Marleny Cai Albumin/Globulin [Mass ratio] 1.3 {ratio} Normal [facility] Comment on above: Performed By: #### T 7, TSH, URIC, CMP, LIPID #### [facility] [address] [address] [address] Marleny Cai ALP [Catalytic activity/Vol] 54 U/L Normal 46-116 [facility] Comment on above: Performed By: #### T 7, TSH, URIC, CMP, LIPID #### [facility] [address] [place] [address] Dr. Marleny Cai ALT [Catalytic activity/Vol] 50 U/L Normal 16-63 [facility] Comment on above: Performed By: #### T 7, TSH, URIC, CMP, LIPID #### [facility] [address] [address] [address] Marleny Cai Anion gap [Moles/Vol] 13.4 mmol/L Normal [facility] Comment on above: Performed By: #### T 7, TSH, URIC, CMP, LIPID #### [facility] [address] [place] [address] Dr. Marleny Cai AST [Catalytic activity/Vol] 27 U/L Normal 15-37 [facility] Comment on above: Performed By: #### T 7, TSH, URIC, CMP, LIPID #### [facility] [address] [address] [address] Marleny Cai Bilirubin [Mass/Vol] 0.4 mg/dL Normal 0.2-1.0 [facility] Comment on above: Performed By: #### T 7, TSH, URIC, CMP, LIPID #### [facility] [address] [place] [address] Dr. Marleny Cai Calcium [Mass/Vol] 9.5 mg/dL Normal 8.5-10.1 [facility] Comment on above: Performed By: #### T 7, TSH, URIC, CMP, LIPID #### [facility] [address] [place] [address] Dr. Marleny Cai Chloride [Moles/Vol] 105 mmol/L Normal 98-107 [facility] Comment on above: Performed By: #### T 7, TSH, URIC, CMP, LIPID #### [facility] [address] [place] [address] Dr. Marleny Cai CO2 [Moles/Vol] 27.0 mmol/L Normal 21.0-32.0 [facility] Comment on above: Performed By: #### T 7, TSH, URIC, CMP, LIPID #### [facility] [address] [place] [address] Dr. Marleny Cai Creatinine [Mass/Vol] 0.71 mg/dL Normal 0.70-1.30 [facility] Comment on above: Performed By: #### T 7, TSH, URIC, CMP, LIPID #### [facility] [address] [place] [address] Dr. Marleny Cai EGFR-AF HONDURAN >60 Normal >=60 [facility] Comment on above: Performed By: #### T 7, TSH, URIC, CMP, LIPID #### [facility] [address] [place] [address] Dr. Marleny Cai EGFR-NON AF HONDURAN >60 Normal >=60 [facility] Comment on above: Performed By: #### T 7, TSH, URIC, CMP, LIPID #### [facility] [address] [place] [address] Dr. Marleyn Cai Globulin (S) [Mass/Vol] 3.2 g/dL Normal [facility] Comment on above: Performed By: #### T 7, TSH, URIC, CMP, LIPID #### [facility] [address] [place] [address] Dr. Marleny Cai Glucose [Mass/Vol] 122 mg/dL Critically high 74-106 [facility] Comment on above: Performed By: #### T 7, TSH, URIC, CMP, LIPID #### [facility] [address] [place] [address] Dr. Marleny Cai Potassium [Moles/Vol] 4.4 mmol/L Normal 3.5-5.1 [facility] Comment on above: Performed By: #### T 7, TSH, URIC, CMP, LIPID #### [facility] [address] [place] [address] Dr. Marleny Cai Protein [Mass/Vol] 7.4 g/dL Normal 6.4-8.2 [facility] Comment on above: Performed By: #### T 7, TSH, URIC, CMP, LIPID #### [facility] [address] [place] [address] Dr. Marleny Cai Sodium [Moles/Vol] 141 mmol/L Normal 136-145 [facility] Comment on above: Performed By: #### T 7, TSH, URIC, CMP, LIPID #### [facility] [address] [place] [address] Dr. Marleny Cai Urea nitrogen [Mass/Vol] 19.0 mg/dL Critically high 7.0-18.0 [facility] Comment on above: Performed By: #### T 7, TSH, URIC, CMP, LIPID #### [facility] [address] [place] [address] Dr. Marleny Cai Urea nitrogen/Creatinine [Mass ratio] 26.8 mg/mg Normal [facility] Comment on above: Performed By: #### T 7, TSH, URIC, CMP, LIPID #### [facility] [address] [place] [address] Dr. Marleny Cai TSHon 05-20-2022 TSH 2.373 uIU/mL Normal 0.358-3.740 [facility] Comment on above: Performed By: #### T 7, TSH, URIC, CMP, LIPID #### [facility] [address] [place], [place] [address] Dr. Marleny Cai URIC ACID SERUMon 05-20-2022 Urate [Mass/Vol] 6.8 mg/dL Normal 3.5-7.2 [facility] Comment on above: Performed By: #### T 7, TSH, URIC, CMP, LIPID #### [facility] [id number] Marleny Cai VITAMIN D 25 OHon 05-20-2022 VIT D 25-OH 36.1 ng/mL Normal [facility] Comment on above: Performed By: #### A 1C #### [facility] [address] [place] [address] Dr. Marleny Cai VIT D RANGES SEE BELOW Normal [facility] Comment on above: Result Comment: <20 ng/mL Vit D deficient 20 - <30 ng/mL Vit D insufficient 30 - 100 ng/mL Vit D sufficient >100 ng/mL Potential Toxicity Performed By: #### A 1C #### [facility] [address] [address] [address] Marleny Cai Outside Colonoscopyon 2022 Outside Colonoscopy [id number] #1.00CD:127 Normal [facility] Reminderson 03-20-2022 Reminders - From: Mariela Tracy LPN To: N - Clinical; Sent: 03/20/2022 09:58:13 EST Show up: 02/16/2027 07:00:00 EST Subject: colonoscopy recall Due Date/Time: 03/19/2027 07:00:00 EST Reminder/Recall Patient is due for colonoscopy 03/19/2027 due to history of colonic polyps. Normal [facility] Lab Reportson 03-17-2022 Lab Reports [id number] #1.00CD:127 Normal [facility] Covid-19 PCR (CVDTB)on 03-02 SARS-CoV-2 (COVID-19) RNA VITA+probe Ql (Unsp spec) Not detected Normal NOT DETECTED [facility] Comment on above: Result Comment: This test is not yet approved or cleared by the [place] FDA. When there are no FDA-approved or cleared tests available, and other criteria are met, FDA can make tests available under an emergency access mechanism called an Emergency Use Authorization (EUA). The EUA for this test is supported by the Score Caller of Health and Human Service's (HHS's) declaration [...] consistent with SARS-CoV-2. Performed By: #### C [facility] #### [facility] [address] [place] [address] Dr. Marleny Cai Consent for Procedure/Surger yon 02-28-2022 Consent for Procedure/Surgery [id number].. [id number] #1.00CD:127 Normal [facility] Formson 02-27-2022 Forms [id number] #1.00CD:127 Normal [facility] Physician Referralon 022 Physician Referral [id number] #1.00CD:127 Normal [facility] Vital Signs Date Time Vital Sign Value Performing Clinician Deana dyer 11-08-2023 09:25-0400 Diastolic blood pressure 85 mm[Hg] MD Bridger Perez Work Phone: [facility] 11-08-2023 09:25-0400 Systolic blood pressure 178 mm[Hg] MD Bridger Perez Work Phone: [facility] 11-08-2023 09:10-0400 Body height 177.8 cm MD Bridger Perez Work Phone: [facility] 11-08-2023 09:10-0400 Body mass index (BMI) [Ratio] 33.9 kg/m2 MD Bridger Perez Work Phone: [facility] 11-08-2023 09:10-0400 Body temperature 99.3 [degF] MD Bridger Perez Work Phone: [facility] 11-08-2023 09:10-0400 Body weight 107.16 kg MD Bridger Perez Work Phone: [facility] 11-08-2023 09:10-0400 Heart rate 81 /min MD Bridger Perez Work Phone: [facility] 11-08-2023 09:10-0400 SaO2% (BldA) [Mass fraction] 98 % MD Bridger Perez Work Phone: [facility] 02-26-2022 13:52-0500 Blood Pressure Location [facility] 02-26-2022 13:52-0500 Diastolic blood pressure 80 mm[Hg] [facility] 02-26-2022 13:52-0500 Heart rate 72 /min [facility] 02-26-2022 13:52-0500 Respiratory rate 16 /min Mirza RE[facility] 02-26-2022 13:52-0500 Systolic blood pressure 164 mm[Hg] Mirza RE[facility] Encounters Encounter Date Encounter Type Care Provider [...] 11-08-2023 ambulatory MD Bridger Perez Work Phone: [facility] Work Phone: Start: 11-08-2023 End: 11-08-2023 Patient encounter procedure MD Bridger Perez Work Phone: [facility] Work Phone: Start: 05-20-2022 End: 05-21-[address] BRIDGER PEREZ . Facility:[facility] Start: 03-21-2022 Encounter for preprocedural laboratory examination DR MIRZA REED . [facility] Start: 03-19-2022 End: 03-20-2022 ambulatory Mirza REED Facility:CD:[id number] Start: 03-15-2022 End: 03-16-[address] MIRZA REED . Facility:[facility] Start: 03-15-2022 End: 03-16-2022 Encounter for preprocedural laboratory examination DR MIRZA REED . Facility: Start: 02-26-2022 End: 02-27-2022 ambulatory Mirza REED Facility:[facility] Start: 02-26-2022 End: 02-26-2022 Patient encounter procedure [facility] REED [facility] Start: 02-03-2022 ambulatory Bridger Perez PROVIDER Fa cility:[facility] Procedures Date Procedure Procedure Detail Performing Clinician Start: 11-08-2023 X-ray of lumbar spin e, four or more views MD Bridger Perez Work Phone: Start: 11-08-2023 X-ray of right knee MD Bridger Perez Work Phone: Start: 05-20-[address] FRANNIE REED . Comment on above: Performed By: #### A 1C #### [facility] [address] [place] [address] Dr. Marleny aCi Start: 02-11-2017 Colonoscopy Olga Lidia cao MD [...] DERM [address] [place] [id number] Olga Lidia Luna MD [address] [place] [address] [facility] Start: 12-21-2023 End: 12-21-2023 Patient encounter procedure 12/21/2023 11:20 AM EDT Office Visit [facility] D[facility] [address] [place] [id number] Olga Lidia Luna MD [address] [place] [address] Arrived [facility] Comment on above: Arrived Start: 11-01-2023 Influenza vaccination Influenz a Vaccine (#1) [facility] Start: 1950 Screening for malign ant neoplasm of colon [facility] Patient Education Low back pain in adults [facility] Work Phone: XR Knee - right 4 Views [facility] XR Lumbar spine GE 4 Views [facility] Immunizations Immunization Date Immunization Notes Care Provider Fa [facility] 01-21-2023 influenza virus vaccine, unspecified formulation Olga Lidia Luna MD Work Phone: [facility] 01-21-2022 SARS-CoV-2 (COVID-19 ) [id number] [facility] 01-14-2022 influenza virus vaccine, unspecified formulation [facility] 12-18-2020 SARS-CoV-2 (COVID-19 ) mRNA BNT-162b2 vax [facility] 04-11-2020 SARS-CoV-2 (COVID-19 ) mRNA BNT-162b2 vax [facility] Comment on above: Result Comment: 2021: [id number] Payers Date Payer Category Payer Self-pay 2021 Private Health Insurance [employer] [id number] 2016 Medicare MEDICARE [id number] 1959 Medicare [id number] 1959 Unknown [id number] 1950 Unknown [id number] 1950 Unknown [id number]. 727 1950 Unknown [id number]. 727 1950 Unknown [id number] 593 1950 Unknown [id number]. 593 1950 Unknown [id number]. 593 1950 Unknown [id number]. 1259 Unknown [id number] 531 Social History Date Type Detail Facility Start: 02-26-2022 End: 11-08-2023 Tobacco smoking status Ex-smoker (finding) [facility] Tobacco smoking status Never [facility] Start: 12-18-2022 End: 12-21-2023 Sex Assigned At Male [facility] Start: 1950 Sex Assigned At Male Aley[facility] Start: 12-18-2022 [facility] Start: 12-18-2022 Tobacco use and exposure Smokeless tobacco non-user [facility] Start: 12-18-2022 End: 12-21-2023 History of Social function [facility] Start: 1950 Sex assigned at Not on file [facility] [facility] Functional Status Date Assessment Result Facility 02-26-2022 Functional Status N/A [facility] [place] History of Present illness Narrative 12-21-2023 Olga [...] year (skin check) documented in this encounter [facility] Clinical Note 03-19-2022 Note Date & Type [...] colon polyps. CC: Bridger Perez M.D. [facility] Clinical Note 02-26-2022 Note Date & Type Note Facility 02-26-2022 Note Chief Complaint consultation for colonoscopy recall [facility] Staff 71 year old male [...] Immunizations Vaccine Date Status Comments SARS-CoV-2 (COVID-19) [id number] 01/21/2022 Recorded influenza vi (more content not included)... [facility] Comment on above: Result Comment: Elec tronically Signed By: TED MORALES, Mirza Rosas\.john\Date and Time Signed: 02/26/22 14:24 EST Evaluation + Plan note Note Date & Type Note Facility Evaluation + Plan note No data available for this section [facility] [place] Evaluation note Note Date & Type Note Facility Evaluation note No assessment information availa [facility] Work Phone: Evaluation note Note Date & Type Note Facility Evaluation note Diagnosis Onset Date Effusion, right knee acute Low back pain acute Right knee pain [facility] Work Phone: Evaluation note Note Date & Type Note Facility Evaluation note Diagnosis Seborrheic keratosis- Primary Lentigines Angioma of skin Skin tag Unspecified hypertrophic and atrophic condition of skin documented in this encounter [facility] Hospital Discharge instructions Note Date & Type Note Facility Hospital Discharge instructions No data available for this section [facility] [place] Progress note Note Date & Type Note Facility Progress note No data available for this section [facility] [place] Summary Purpose Family History No Family History [...] and content) DATE CREATED [facility] CREATED AUTHOR AUTHOR'S ORGANIZ ATION 05/25/2022 [facility] DATE CREATED AUTHOR AUTHOR'S ORGANIZ ATION 11/16/2023 [facility] DATE CREATED AUTHOR AUTHOR'S ORGANIZ ATION 12/22/2023 [facility] EPIC Goals (unrecognized section and [...] BE BASED ON THE PRIMARY CLINICAL RECORDS. [employer] provides no warranty or guarantee of the accuracy or completeness of information in this document.
[2024-05-26 11:19] LABS: Basophils Absolute Auto 0.1 10^3/uL (0.0-0.1); Eosinophils Absolute Auto 0.2 10^3/uL (0.0-0.7); Eosinophils Percent Auto 3.4 % (0.9-7.0); Hematocrit 38.4 % (42.0-54.0); Hemoglobin 13.2 g/dL (14.0-18.0); Immature Granulocytes Abs Auto 0.03 10^3/uL (0.00-0.03); Immature Granulocytes Pct Auto 0.5 % (0.0-0.5); Lymphocytes Absolute Auto 1.4 10^3/uL (1.2-3.8); Lymphocytes Percent Auto 24.4 % (20.5-60.0); Mean Corpuscular HGB Conc 34.4 g/dL (29.9-35.2); Mean Corpuscular Hemoglobin 30.8 pg (25.9-34.0); Mean Corpuscular Volume 89.5 fL (80.0-94.0); Monocytes Absolute Auto 0.6 10^3/uL (0.3-0.8); Monocytes Percent Auto 9.8 % (1.7-12.0); Neutrophils Absolute Auto 3.6 10^3/uL (1.4-6.5); Neutrophils Percent Auto 60.9 % (43.0-75.0); Platelet Count 180 10^3/uL (150-450); Red Blood Count 4.29 10^6/uL (4.70-6.10); Red Cell Distribution Width 13.5 % (11.0-15.0); White Blood Count 5.9 10^3/uL (4.0-11.0)
[2024-05-26 12:11] LABS: Estimated Average Glucose 131 mg/dL; Glycohemoglobin A1C 6.2 % (4.5-6.2)
[2024-05-26 12:17] LABS: Prostate Specific Antigen Scrn 0.75 ng/mL (<=4.00)
[2024-05-26 12:39] LABS: Alanine Aminotransferase 34 U/L (16-63); Albumin Globulin Ratio 1.2; Albumin Level 3.8 g/dL (3.4-5.0); Alkaline Phosphatase 61 U/L (46-116); Anion Gap 14.1; Aspartate Amino Transferase 22 U/L (15-37); BUN Creatinine Ratio 21.8; Bilirubin Total 0.5 mg/dL (0.2-1.0); Calcium 8.9 mg/dL (8.5-10.1); Carbon Dioxide 26.1 mmol/L (21.0-32.0); Chloride 105 mmol/L (98-107); Chol HDL Ratio 3.6; Cholesterol 232 mg/dL (<=200); Estimated GFR (African America >60 (>=60 mL/min/1.73m^2); Estimated GFR (Non-African Ame >60 (>=60 mL/min/1.73m^2); Free T3 2.23 pg/mL (2.18-3.98); Globulin 3.2 g/dL; Glucose 132 mg/dL (74-106); HDL Cholesterol 65 mg/dL (40-60); Potassium 4.2 mmol/L (3.5-5.1); Sodium 141 mmol/L (136-145); Thyroid Stimulating Hormone 2.092 uIU/mL (0.358-3.740); Triglycerides 115 mg/dL (<=150)
== END 2024-05-26 10:41 | disposition home or self-care (01) ==
LOC: LAB 10:42
PROVIDERS: PCP Family Medicine; Visit Provider Family Medicine
DX: G47.30 Sleep apnea, unspecified (principal); E78.5 Hyperlipidemia, unspecified; I10 Essential (primary) hypertension; M79.606 Pain in leg, unspecified; R73.09 Other abnormal glucose; E03.9 Hypothyroidism, unspecified; Z12.5 Encounter for screening for malignant neoplasm of prostate; R53.83 Other fatigue
CPT/HCPCS: 36415; 80053; 80061; 83036; 84436; 84443; 84481; 85025; G0103